=== PATIENT | male | born 1975 | race Caucasian/White ===

== ENCOUNTER 2020-06-15 09:19 | Emergency (ER) | payer OTHER ==
[2020-06-15 11:39] LABS: RED BLOOD COUNT 4.47 M/UL (4.20-5.50); WHITE BLOOD COUNT 15.3 K/UL (4.5-11.0)
[2020-06-15 12:08] LABS: BUN/CREATININE RATIO 14 (0-10)
[2020-06-15] MEDS ORDERED: AZITHROMYCIN500 MG PO (14:23)
[2020-06-15] MEDS ORDERED: CEFDINIR300 MG PO (14:23)
[2020-06-15] MEDS ORDERED: IBUPROFEN800 MG PO (14:23)
[2020-06-15] MEDS ORDERED: ONDANSETRON ODT4 MG SL (14:23)
== END 2020-06-15 15:55 | disposition home or self-care (01) ==
LOC: ER1 09:19
PROVIDERS: Emergency Medicine
DX: N39.0 Urinary tract infection, site not specified (principal); R31.9 Hematuria, unspecified; Z90.49 Acquired absence of other specified parts of digestive tract; Z20.822 Contact with and (suspected) exposure to COVID-19
CPT/HCPCS: 0240U; 71045; 80053; 81001; 82150; 82550; 82553; 83605; 83690; 83874; 84484; 85025; 85610; 85730; 87040; 87077; 87081; 87086; 87186; 87880; 93005; 96365; 96375; 99284; J0696; J2405